=== PATIENT | male | born 1990 ===

== ENCOUNTER 2023-02-28 17:33 | Emergency (ER) | payer OTHER ==
[~2023-02-28] VITALS: Ht 177.8 cm; Wt 122.7 kg
[2023-02-28] MEDS ORDERED: PROP20TA18 PO (17:41)
[2023-02-28 18:54] LABS: BASOPHILS % (AUTO) 0.8 % (0.0-2.0); HEMATOCRIT 41.1 % (41-53); HEMOGLOBIN 13.7 g/dL (13.5-17.5); LYMPHOCYTES # (AUTO) 3.8 K/uL (1.0-4.8); LYMPHOCYTES % (AUTO) 37.8 % (22.0-44.0); MEAN CORPUSCULAR HEMOGLOBIN 28.2 pg (26.0-34.0); MEAN CORPUSCULAR HGB CONC 33.4 G/dL (31.0-37.0); MEAN CORPUSCULAR VOLUME 84 fL (80-100); MONOCYTES # (AUTO) 0.6 K/uL (0.1-1.0); MONOCYTES % (AUTO) 6.4 % (2.0-9.0); NEUTROPHILS # (AUTO) 5.4 K/uL (1.8-7.7); PLATELET COUNT (AUTO) 307 K/uL (150-450); RED BLOOD CELL COUNT(AUTO) 4.86 MIL/uL (4.50-5.90); RED CELL DISTRIBUTION WIDTH 13.2 % (11.5-14.5)
[2023-02-28 19:04] LABS: ANION GAP 9 mmol/L (8-16); CALCIUM, TOTAL 9.8 mg/dL (8.8-10.5); CARBON DIOXIDE 28 mmol/L (22-29); CHLORIDE 100 mmol/L (98-107); CREATININE 0.99 mg/dL (0.60-1.30); GLOMERULAR FILTR. RATE CALC > 60 mL/min (>60); GLUCOSE,RANDOM 81 mg/dL (70-110); POTASSIUM 4.4 mmol/L (3.5-5.1); SODIUM SERUM 137 mmol/L (136-145)
[2023-02-28 19:06] LABS: PROTHROMBIN TIME 11.1 SEC (9.4-11.6)
[2023-02-28 19:11] LABS: ALANINE AMINOTRANSFERASE 43 U/L (12-78); ALBUMIN 4.1 g/dL (3.4-5.0); ALKALINE PHOSPHATASE 45 U/L (46-116); ASPARTATE AMINOTRANSFERASE 24 U/L (15-37); BILIRUBIN,TOTAL 0.4 mg/dL (0.1-1.0); TOTAL PROTEIN, SERUM 8.4 g/dL (6.4-8.2)
[2023-02-28 20:05] LABS: ERYTHROCYTE SEDIMENTATION RATE 26 MM/HR (0-15)
[2023-02-28 20:35] VITALS: BP 154/98
== END 2023-02-28 20:00 | disposition home or self-care (01) ==
LOC: EMS 17:39
DX: R51.9 Headache, unspecified (principal); Z98.890 Other specified postprocedural states
CPT/HCPCS: 70450; 80053; 85025; 85610; 85651; 99284